=== PATIENT | female | born 1990 | race African-American/Black ===

== ENCOUNTER 2019-07-25 16:30 | Emergency (ER) | payer MEDICAID, OTHER ==
[~2019-07-25] VITALS: Ht 167.6 cm; Wt 62.0 kg
[2019-07-25] MEDS ORDERED: ALBUTEROL (0.083%) 2.5MG/3ML NEB HHN STA (19:14)
[2019-07-25] MEDS ORDERED: SODIUM CHLORIDE 0.9% 1,000 ML IV ONE (19:14)
[2019-07-25] MEDS ORDERED: IPRATROPIUM BROMIDE (0.02%) 0.5MG/2.5ML NEB HHN STA (19:14)
[2019-07-25] MEDS ORDERED: METHYLPREDNISOLONE SOD SUCC 125 MG/2 ML VIAL IV STA (19:14)
[2019-07-25 22:10] VITALS: BP 129/85
== END 2019-07-25 22:10 | disposition home or self-care (01) ==
LOC: ER 16:30
DX: J20.9 Acute bronchitis, unspecified (principal); F17.200 Nicotine dependence, unspecified, uncomplicated
CPT/HCPCS: 71045; 94640; 96374; 99285; J2930; J7030; J7611; Z7610

== ENCOUNTER 2019-09-20 23:00 | Emergency (ER) | payer MEDICAID ==
[~2019-09-20] VITALS: Ht 165.1 cm; Wt 57.0 kg
[2019-09-21] MEDS ORDERED: ACETAMINOPHEN 325MG TABLET PO ONE (04:15)
[2019-09-21 04:28] LABS: BASOPHILS % 0.4 % (0.0-2.0); EOSINOPHILS % 0.9 % (0.0-5.0); HEMATOCRIT. 36.9 % (36.0-48.0); HEMOGLOBIN. 12.4 g/dL (12.0-16.0); LYMPHOCYTES % 31.1 % (20.0-50.0); MEAN CORPUSCULAR HEMOGLOBIN 33.6 pg (28.0-32.0); MEAN CORPUSCULAR VOLUME 99.9 fL (81.0-99.0); MEAN PLATELET VOLUME 7.5 fl (7.4-10.4); MONOCYTES % 7.2 % (2.0-8.0); NEUTROPHILS % 60.4 % (40.0-76.0); PLATELET 236 x1000/uL (130-400); RED BLOOD CELL COUNT 3.69 mill/uL (4.2-5.4); RED CELL DISTRIBUTION WIDTH 16.3 % (11.6-14.6)
[2019-09-21 05:53] VITALS: BP 110/53
== END 2019-09-21 05:53 | disposition home or self-care (01) ==
LOC: ER 23:00
DX: N93.9 Abnormal uterine and vaginal bleeding, unspecified (principal); M54.5 Low back pain
CPT/HCPCS: 36415; 81025; 84702; 85025; 99283

== ENCOUNTER 2022-06-15 04:50 | Emergency (ER) | payer MEDICAID ==
[~2022-06-15] VITALS: Ht 162.6 cm; Wt 59.0 kg
[2022-06-15 04:52] VITALS: BP 100/80
[2022-06-15] MEDS ORDERED: BACITRACIN ZINC OINT UDPKT TOP ONE (05:45)
[2022-06-15] MEDS ORDERED: TETANUS, DIPHTHERIA, PERTUSSIS VAC/PF 0.5ML (>10YR OLD) IM ONE (05:45)
[2022-06-15] MEDS ORDERED: LIDOCAINE HCL/PF 1% 10 MG/ML 5ML VIAL INFIL ONE (05:45)
[2022-06-15] MEDS ORDERED: IBUPROFEN 600MG TABLET PO ONE (05:45)
[2022-06-15] MEDS ORDERED: LIDOCAINE HCL 1% 20ML VIAL (Pyxis) INJ INFIL ONE ×2 (08:30→10:00)
[2022-06-15] MEDS ORDERED: AMOX1TAB16 MT (09:29)
== END 2022-06-15 12:44 | disposition home or self-care (01) ==
LOC: ER 04:50
DX: S66.821A Laceration of other specified muscles, fascia and tendons at wrist and hand level, right hand, initial encounter (principal); S61.412A Laceration without foreign body of left hand, initial encounter; S31.119A Laceration without foreign body of abdominal wall, unspecified quadrant without penetration into peritoneal cavity, initial encounter; Y04.0XXA Assault by unarmed brawl or fight, initial encounter; W25.XXXA Contact with sharp glass, initial encounter; Y93.89 Activity, other specified; Y92.59 Other trade areas as the place of occurrence of the external cause; Y99.8 Other external cause status
CPT/HCPCS: 12004; 73130; 81025; 90471; 90715; 99283; J3490; Z7610

== ENCOUNTER 2023-11-16 09:33 | Emergency (ER) | payer OTHER ==
[~2023-11-16] VITALS: Ht 165.1 cm; Wt 65.0 kg
[~2023-11-16 09:33] MED LIST: AMOX1TAB16 MT; CEPH500T MT; SULF1TAB48 MT
[2023-11-16 09:42] VITALS: BP 111/70; PULSE 89; RESP 16; TEMP 98.5; O2SAT 97
[2023-11-16] MEDS: IBUPROFEN 600MG TABLET PO ONE (11:14)
== END 2023-11-16 12:39 | disposition left against medical advice (07) ==
LOC: ER 09:43
DX: S00.83XA Contusion of other part of head, initial encounter (principal); Y08.89XA Assault by other specified means, initial encounter; Y93.89 Activity, other specified; Y92.89 Other specified places as the place of occurrence of the external cause; Y99.8 Other external cause status
CPT/HCPCS: 70486; 73130; 99284

== ENCOUNTER 2024-05-04 15:46 | Emergency (ER) | payer OTHER ==
[~2024-05-04] VITALS: Ht 170.2 cm; Wt 59.0 kg
[2024-05-04 15:52] VITALS: TEMP 97.9; O2SAT 100
[2024-05-04] MEDS: TETANUS, DIPHTHERIA, PERTUSSIS VAC/PF 0.5ML (>10YR OLD) IM ONE (16:39)
[2024-05-04] MEDS: BACITRACIN ZINC OINT UDPKT TOP ONE (17:08)
[2024-05-04] MEDS: LIDOCAINE HCL/PF 1% 10 MG/ML 5ML VIAL INFIL ONE (17:08)
[2024-05-04 17:09] VITALS: BP 108/70; PULSE 86; RESP 15; O2SAT 99
== END 2024-05-04 17:14 | disposition home or self-care (01) ==
LOC: ER 15:46
DX: S61.210A Laceration without foreign body of right index finger without damage to nail, initial encounter (principal); X58.XXXA Exposure to other specified factors, initial encounter; Y93.89 Activity, other specified; Y92.89 Other specified places as the place of occurrence of the external cause; Y99.8 Other external cause status
CPT/HCPCS: 12001; 99283; J3490; Z7610

== ENCOUNTER 2025-03-15 17:04 | Emergency (ER) | payer OTHER ==
[~2025-03-15] VITALS: Ht 175.3 cm; Wt 86.0 kg
[2025-03-15 17:11] VITALS: O2SAT 99
[2025-03-15] MEDS: DIPHENHYDRAMINE 50MG/ML VIAL IM STA (18:00)
[2025-03-15] MEDS: LORAZEPAM 2MG/ML UD SYRINGE IM SCH (18:00)
[2025-03-15] MEDS: HALOPERIDOL LACTATE 5MG/ML VIAL IM STA (18:00)
[2025-03-15] MEDS: HALOPERIDOL LACTATE 5MG/ML VIAL IM ONE (20:30)
[2025-03-15] MEDS: DIPHENHYDRAMINE 50MG/ML VIAL IM ONE (20:30)
[2025-03-15 21:10] LABS: BASOPHILS % 0.3 % (0.0-2.0); EOSINOPHILS % 0.4 % (0.0-5.0); HEMATOCRIT. 42.5 % (36.0-48.0); HEMOGLOBIN. 14.5 g/dL (12.0-16.0); LYMPHOCYTES % 36.6 % (20.0-50.0); MEAN PLATELET VOLUME 7.5 fl (7.4-10.4); MONOCYTES % 6.7 % (2.0-8.0); NEUTROPHILS % 56.0 % (40.0-76.0); PLATELET 292 x1000/uL (130-400); RED BLOOD CELL COUNT 4.07 mill/uL (4.2-5.4); RED CELL DISTRIBUTION WIDTH 15.3 % (11.6-14.6)
[2025-03-15 21:23] LABS: CREATININE 1.0 mg/dL (0.6-1.0); UREA NITROGEN BLOOD 9 mg/dL (9-23)
[2025-03-15 21:24] LABS: ETHANOL BLOOD 70 mg/dL (<10)
[2025-03-15 21:25] LABS: HCG SCREEN NEGATIVE
[2025-03-15 21:39] LABS: *AMPHETAMINES SCREEN URINE PRESUMPTIVE POSITIVE (NEGATIVE); *BARBITURATES SCREEN URINE NEGATIVE (NEGATIVE); *BENZODIAZEPINES SCREEN URINE NEGATIVE (NEGATIVE); *COCAINE SCREEN URINE PRESUMPTIVE POSITIVE (NEGATIVE); CANNABINOID URINE SCREEN PRESUMPTIVE POSITIVE (NEGATIVE); ECSTASY MDMA SCREEN URINE NEGATIVE (NEGATIVE); METHADONE URINE SCREEN NEGATIVE (NEGATIVE); OPIATES URINE SCREEN NEGATIVE (NEGATIVE); PHENCYCLIDINE URINE SCREEN PRESUMTIVE POSITIVE (NEGATIVE)
[2025-03-15 21:43] LABS: CLARITY URINE CLOUDY (CLEAR); COLOR URINE YELLOW (YELLOW); GLUCOSE URINE NEGATIVE (NEGATIVE); PH URINE 6.0 (4.5-8.0); PROTEIN URINE TRACE (NEGATIVE); SPECIFIC GRAVITY URINE 1.014 (1.005-1.030)
[2025-03-15 21:44] LABS: KETONES URINE TRACE (NEGATIVE); LEUKOCYTE ESTERASE URINE 3+ (NEGATIVE); NITRITE URINE POSITIVE (NEGATIVE); OCCULT BLOOD URINE 1+ (NEGATIVE); UROBILINOGEN URINE 1.0 E.U./dL (0.2-1.0)
[2025-03-15 21:53] LABS: BACTERIA URINE 3+; SQUAMOUS EPITHELIAL CELL URINE 1+ /lpf (RARE/1+); WBC URINE 50-100 /hpf (0-2)
[2025-03-15] MEDS: CEPHALEXIN 250MG CAPSULE PO ONE (23:53)
[2025-03-15] MEDS: POTASSIUM CHLORIDE 20MEQ/PACKET PO ONE (23:53)
[2025-03-16] MEDS: SERTRALINE HCL 25MG TABLET PO SCH (11:15)
[2025-03-16 20:38] VITALS: BP 102/71; PULSE 84; RESP 18; TEMP 37; O2SAT 100
[2025-03-16] MEDS ORDERED: TRAZODONE HCL 50MG TABLET PO SCH (21:00)
== END 2025-03-16 21:00 ==
LOC: ER 17:04
DX: R45.1 Restlessness and agitation (principal); R45.851 Suicidal ideations; N39.0 Urinary tract infection, site not specified; E87.6 Hypokalemia; F19.10 Other psychoactive substance abuse, uncomplicated; F32.9 Major depressive disorder, single episode, unspecified; F41.9 Anxiety disorder, unspecified; F10.90 Alcohol use, unspecified, uncomplicated; Z79.899 Other long term (current) drug therapy; Z20.822 Contact with and (suspected) exposure to COVID-19; Y90.9 Presence of alcohol in blood, level not specified
CPT/HCPCS: 80305; 80048; 81003; 80307; 80329; 80320; 84703; 85025; 87086; 87186; 87077; 36415; 96372; 99285; 87426; J1200; J1630; J2060; Z7610 ×2; G0480

== ENCOUNTER 2025-03-22 10:47 | Emergency (ER) | payer MEDICAID, OTHER ==
[~2025-03-22] VITALS: Ht 167.6 cm; Wt 60.0 kg
[2025-03-22 10:54] VITALS: BP 96/60; PULSE 72; RESP 14; TEMP 36.5; O2SAT 99
[2025-03-22 11:44] LABS: HEMATOCRIT. 41.9 % (36.0-48.0); HEMOGLOBIN. 14.1 g/dL (12.0-16.0); MEAN PLATELET VOLUME 7.6 fl (7.4-10.4); PLATELET 222 x1000/uL (130-400); RED BLOOD CELL COUNT 4.00 mill/uL (4.2-5.4); RED CELL DISTRIBUTION WIDTH 15.0 % (11.6-14.6)
[2025-03-22 11:55] LABS: INR 0.9
[2025-03-22 12:03] LABS: CREATININE 0.7 mg/dL (0.6-1.0)
[2025-03-22 12:04] LABS: ETHANOL BLOOD < 10 mg/dL (<10); UREA NITROGEN BLOOD 11 mg/dL (9-23)
[2025-03-22 12:05] LABS: ASPARTATE AMINOTRANSFERASE 47 IU/L (<34)
[2025-03-22 12:06] LABS: BILIRUBIN DIRECT 0.1 mg/dL (<=3.0); BILIRUBIN TOTAL 0.4 mg/dL (0.1-1.0); PROTEIN TOTAL 7.3 g/dL (6.0-8.3)
[2025-03-22 12:11] LABS: HCG SCREEN NEGATIVE
[2025-03-22 13:25] LABS: BAND% 2.0 % (1.0-6.0); EOSINOPHILS % MANUAL 1.0 % (0.0-5.0); LYMPHOCYTES % MANUAL 38.0 % (20.0-60.0); MONOCYTES % MANUAL 11.0 % (2.0-8.0); NEUTROPHILS % MANUAL 48.0 % (45.0-75.0); PLATELET ESTIMATE NORMAL
== END 2025-03-22 13:15 | disposition home or self-care (01) ==
LOC: ER 11:16
DX: F17.200 Nicotine dependence, unspecified, uncomplicated (principal); F41.9 Anxiety disorder, unspecified; F12.90 Cannabis use, unspecified, uncomplicated; F14.90 Cocaine use, unspecified, uncomplicated; F15.90 Other stimulant use, unspecified, uncomplicated; Z79.899 Other long term (current) drug therapy; Z98.890 Other specified postprocedural states
CPT/HCPCS: 36415; 80048; 80076; 80320; 84703; 85025; 99283; G0480

== ENCOUNTER 2025-05-06 03:50 | Emergency (ER) | payer OTHER, MEDICAID ==
[~2025-05-06] VITALS: Ht 162.6 cm; Wt 56.0 kg
[2025-05-06 03:57] VITALS: O2SAT 99
[2025-05-06] MEDS ORDERED: CEPH500C2 MT (04:25)
[2025-05-06] MEDS ORDERED: IBUP-2029 MT (04:26)
[2025-05-06] MEDS ORDERED: MUPI1OIN4 TP (04:26)
[2025-05-06] MEDS ORDERED: SULF1TAB48 MT (04:26)
[2025-05-06] MEDS: SULFAMETHOXAZOLE/TRIMETHOPRIM 800/160MG TABLET PO ONE (04:40)
[2025-05-06] MEDS: CEPHALEXIN 250MG CAPSULE PO ONE (04:40)
[2025-05-06] MEDS: IBUPROFEN 600MG TABLET PO ONE (04:40)
[2025-05-06 04:52] VITALS: BP 109/71; PULSE 59; RESP 14; TEMP 36.7; O2SAT 99
== END 2025-05-06 04:54 | disposition home or self-care (01) ==
LOC: ER 03:50
DX: L03.113 Cellulitis of right upper limb (principal)
CPT/HCPCS: 99284

== ENCOUNTER 2025-05-07 02:48 | Emergency (ER) | payer MEDICAID, OTHER ==
[~2025-05-07] VITALS: Ht 165.1 cm; Wt 59.0 kg
[~2025-05-07 02:48] MED LIST changes: +CEPH500C2 MT; +IBUP-2029 MT; +MUPI1OIN4 TP
[2025-05-07] MEDS: DIPHENHYDRAMINE 50MG/ML VIAL IM ONE (04:07)
[2025-05-07] MEDS: LORAZEPAM 2MG/ML UD SYRINGE IM SCH (04:07)
[2025-05-07] MEDS: HALOPERIDOL LACTATE 5MG/ML VIAL IM ONE (04:11)
[2025-05-07 04:41] LABS: CLARITY URINE CLEAR (CLEAR); COLOR URINE YELLOW (YELLOW); GLUCOSE URINE NEGATIVE (NEGATIVE); KETONES URINE TRACE (NEGATIVE); LEUKOCYTE ESTERASE URINE 2+ (NEGATIVE); NITRITE URINE NEGATIVE (NEGATIVE); OCCULT BLOOD URINE NEGATIVE (NEGATIVE); PH URINE 6.5 (4.5-8.0); PROTEIN URINE 1+ (NEGATIVE); SPECIFIC GRAVITY URINE 1.028 (1.005-1.030); UROBILINOGEN URINE 1.0 E.U./dL (0.2-1.0)
[2025-05-07 04:46] LABS: BASOPHILS % 0.2 % (0.0-2.0); EOSINOPHILS % 0.4 % (0.0-5.0); HEMATOCRIT. 43.9 % (36.0-48.0); HEMOGLOBIN. 14.7 g/dL (12.0-16.0); LYMPHOCYTES % 33.3 % (20.0-50.0); MEAN PLATELET VOLUME 8.1 fl (7.4-10.4); MONOCYTES % 5.2 % (2.0-8.0); NEUTROPHILS % 60.9 % (40.0-76.0); PLATELET 248 x1000/uL (130-400); RED BLOOD CELL COUNT 4.15 mill/uL (4.2-5.4); RED CELL DISTRIBUTION WIDTH 15.4 % (11.6-14.6)
[2025-05-07 04:52] LABS: CREATININE 0.9 mg/dL (0.6-1.0)
[2025-05-07 04:53] LABS: ETHANOL BLOOD 255 mg/dL (<10); UREA NITROGEN BLOOD 7 mg/dL (9-23)
[2025-05-07 04:54] LABS: *AMPHETAMINES SCREEN URINE PRESUMPTIVE POSITIVE (NEGATIVE); *BARBITURATES SCREEN URINE NEGATIVE (NEGATIVE); *BENZODIAZEPINES SCREEN URINE NEGATIVE (NEGATIVE); *COCAINE SCREEN URINE PRESUMPTIVE POSITIVE (NEGATIVE); ASPARTATE AMINOTRANSFERASE 30 IU/L (<34); CANNABINOID URINE SCREEN PRESUMPTIVE POSITIVE (NEGATIVE); ECSTASY MDMA SCREEN URINE NEGATIVE (NEGATIVE); METHADONE URINE SCREEN NEGATIVE (NEGATIVE); OPIATES URINE SCREEN NEGATIVE (NEGATIVE); PHENCYCLIDINE URINE SCREEN NEGATIVE (NEGATIVE)
[2025-05-07 04:55] LABS: BILIRUBIN DIRECT 0.1 mg/dL (<=3.0); BILIRUBIN TOTAL 0.3 mg/dL (0.1-1.0); PROTEIN TOTAL 8.2 g/dL (6.0-8.3)
[2025-05-07 05:00] VITALS: O2SAT 99
[2025-05-07 05:00] LABS: HCG SCREEN NEGATIVE
[2025-05-07 05:16] LABS: RBC URINE 0-2 /hpf (0-2); SQUAMOUS EPITHELIAL CELL URINE NONE SEEN /lpf (RARE/1+)
[2025-05-07 05:46] LABS: BACTERIA URINE NONE SEEN
[2025-05-07] MEDS: TETANUS, DIPHTHERIA, PERTUSSIS VAC/PF 0.5ML (>10YR OLD) IM ONE (06:15)
[2025-05-07] MEDS: LIDOCAINE HCL 1% 20ML VIAL INFIL ONE ×2 (06:30→07:15)
[2025-05-07] MEDS: CEPHALEXIN 250MG CAPSULE PO SCH (11:26)
[2025-05-07 13:56] VITALS: BP 92/60; PULSE 65; RESP 18; TEMP 36.9; O2SAT 100
== END 2025-05-07 14:29 ==
LOC: ER 02:48
DX: S01.81XA Laceration without foreign body of other part of head, initial encounter (principal); F32.A Depression, unspecified; I10 Essential (primary) hypertension; N39.0 Urinary tract infection, site not specified; F10.90 Alcohol use, unspecified, uncomplicated; F12.90 Cannabis use, unspecified, uncomplicated; F14.90 Cocaine use, unspecified, uncomplicated; F15.90 Other stimulant use, unspecified, uncomplicated; Z79.899 Other long term (current) drug therapy; Z20.822 Contact with and (suspected) exposure to COVID-19; X58.XXXA Exposure to other specified factors, initial encounter; Y93.89 Activity, other specified; Y92.89 Other specified places as the place of occurrence of the external cause; Y99.8 Other external cause status; Y90.9 Presence of alcohol in blood, level not specified
CPT/HCPCS: 80076; 80305; 80048; 81003; 80307; 80329; 80320; 84703; 85025; 87086; 36415; 70450; 70486; 72125; 93005; 12013; 96372; 99291; 87426; J1200; J1630; J2003; J2060; Z7610 ×2; G0480